=== PATIENT | male | born 1950 | race Caucasian/White ===

== ENCOUNTER → 2017-01-03 | Outpatient (CLI) | payer MEDICARE, OTHER ==
[~2017-01-03] MED LIST: ASCORBIC ACID500 MG PO; CORDARONE DPS200 MG PO; COUMADIN5 MG PO; DELTASONE DPS10 MG PO; DULERA 200/58.8 GM IH; KLOR-CON 1010 MEQ PO; LASIX DPS80 MG PO; OMNICEF DPS300 MG PO; PROAIR HFA8.5 GM IH; SPIRIVA18 MCG IH
== END | disposition home or self-care (01) ==
LOC: RAD.S 07:00 → PTH.S 07:30 → RAD.S 08:00
DX: R91.1 Solitary pulmonary nodule (principal); C34.90 Malignant neoplasm of unspecified part of unspecified bronchus or lung; J43.9 Emphysema, unspecified; J98.4 Other disorders of lung